=== PATIENT | male | born 1975 | race African-American/Black ===

== ENCOUNTER 2021-09-14 07:48 | Day surgery (SDC) | payer OTHER ==
[2021-09-12 15:53] VITALS: BMI 28.7
[2021-09-14] MEDS ORDERED: PROPOFOL 20 ML ONE ×4 (07:51)
[2021-09-14 08:31] VITALS: TEMP 97.2
[2021-09-14 08:45] VITALS: BP 115/60; PULSE 78
== END 2021-09-14 09:01 | disposition home or self-care (01) ==
LOC: FASU-ENDO 07:48
PROVIDERS: ATTEND Internal Medicine Gastroenterology
PROC: 0DJD8ZZ Inspection of Lower Intestinal Tract, Via Natural or Artificial Opening Endoscopic (ICD-10-PCS; principal; 2021-09-14 08:13)
DX: Z12.11 Encounter for screening for malignant neoplasm of colon (principal); K57.30 Diverticulosis of large intestine without perforation or abscess without bleeding